=== PATIENT | female | born 1945 | race Caucasian/White ===

== ENCOUNTER → 2023-07-30 09:44 | Outpatient (REF) | payer MEDICARE, SELFPAY | LOC: HWRAD 09:44 | PROVIDERS: ATTENDING PHYSICIAN Urology; FAMILY PHYSICIAN Family Medicine | DX: N32.81 Overactive bladder (principal) | CPT/HCPCS: 76830; 76856; 76857 ==

== ENCOUNTER → 2023-08-22 07:35 | Outpatient (REF) | payer MEDICARE, SELFPAY ==
[2023-08-22 08:46] LABS: % Basophils 2.3 % (0-2); % Eosinophils 2.1 % (0-6); % Immature Granulocytes 0.1 % (0-0.5); % Lymphocytes 36.5 % (20.5-51.1); % Monocytes 7.5 % (1.7-9.3); % Neutrophils 51.5 % (42.2-75.2); Absolute Basophils 0.2 10^3/uL (0-0.2); Absolute Eosinophils 0.2 10^3/uL (0-0.7); Absolute Lymphocytes 2.6 10^3/uL (1.2-3.4); Absolute Monocytes 0.5 10^3/uL (0.1-0.6); Absolute Neutrophils 3.6 10^3/uL (1.4-6.5); Hematocrit 41.1 % (37.0-47.0); Hemoglobin 13.3 g/dL (12.0-16.0); Mean Corp Hgb Conc. 32.4 g/dL (33.0-37.0); Mean Corpuscular Volume 92.6 fL (81.0-99.0); Mean Platelet Volume 10.8 fL (7.4-10.4); Nucleated Red Blood Cells % 0 %; Platelet Count 378 10^3/uL (130-400); Red Blood Cell Count 4.44 10^6/uL (4.20-5.40); Red Cell Dist. Width 13.7 % (11.5-14.5); White Blood Cell Count 7.1 10^3/uL (4.8-10.8)
[2023-08-22 09:44] LABS: Blood Urea Nitrogen 17 mg/dl (7-17); Calcium 9.3 mg/dl (8.4-10.2); Carbon Dioxide 25 mmol/L (22-30); Chloride 106 mmol/L (98-107); Glucose 109 mg/dl (70-99); Potassium 4.7 mmol/L (3.5-5.1); Sodium 138 mmol/L (135-145); eGFR > 60.00
== END ==
LOC: SDSPAT 07:35
PROVIDERS: ATTENDING PHYSICIAN Obstetrics & Gynecology; FAMILY PHYSICIAN Family Medicine; OTHER PHYSICIAN Internal Medicine Hematology & Oncology; OTHER PHYSICIAN Surgery
DX: Z01.818 Encounter for other preprocedural examination (principal)
CPT/HCPCS: 36415; 80048; 85025; 86850; 86900; 86901; 93005

== ENCOUNTER 2023-08-26 06:33 | Day surgery (SDC) | payer MEDICARE, SELFPAY ==
[2023-08-22 07:54] VITALS: BMI 20.8
[2023-08-26] VITALS (11 sets, daily range): BP systolic 116–138; BP diastolic 66–85; BMI 20.8
[2023-08-26] MEDS: NORMOSOL-R 1000 IV (09:15)
[2023-08-26] MEDS: TYLENOL 1000 MG PO (10:11)
[2023-08-26] MEDS: TORADOL 15 MG IV (14:07)
--- NOTE | 2023-08-26 14:37 | W.IMMPOSTOP ---
Surgical Immed Post Op Note
-
Primary Surgeon: Jennifer Joseph DO
Assisting Surgeon: same
Pre-op Diagnosis: Thickened endometrium on ultrasound.
Post-op Diagnosis: same, endometrial polyp
Procedure Performed: Hyserscopy D&C; dx laparoscopy with evaluation of bowel and eval to rule out uterine perforation
Anesthesia Type: general LMA-replaced with ET Dr. Ness
Intraoperative consult: Dr. Casanova
Specimen / Cultures: 1. endocervical curettings 2, endometrial curettings and polyp
Estimated Blood Loss: 5ml
Complications: none
Operative Findings: uterus retroverted, sounded to 7cm. Initial evaluation with limited distension of
cavity. Yellowish appearing tissue noted raising concern for possible perforation. Laparoscopy revealed no evidence of
perforation. Normal appearing uterus, tubes and ovaries. Hysteroscopy performed again. Retroverted cavity. Polyp with slight
yellowish-white hue noted. Resected with myosure Reach. Cavity appeared smooth. Bilateral tubal ostia seen. Polyp located EDUARDO
with some fluffy tissue here. Long cervical canal.
Counts correct times 2.
Stable to recovery.
--- NOTE | 2023-08-26 14:58 | OR.RPT ---
Operative Report
Operative Report
Intra-operative consult
Preoperative diagnosis: Concern for bowel injury
Procedure: Diagnostic laparoscopy
Date of Surgery: 08/26/23
Postoperative diagnosis: Negative for bowel injury
Indications: This 77F was undergoing hysteroscopy with Dr. Joseph. During the procedure there was concern for possible bowel injury and General Surgery was consulted. The patient was under general anesthesia at the time of the consult.
Description of procedure: The abdomen was prepped and draped in the usual sterile fashion. A skin incision was made above the umbilicus at the site of her existing midline scar. The incision was carried down to the fascia with blunt dissection.
The fascia was grasped with kochers and elevated. It was divided with metzenbaum scissors and the abdomen entered. A 12mm Monson trocar was placed and secured with 0 vicryl stay sutured on either side. The abdomen was insufflated with carbon dioxide
to a pressure of 12 mmHg. The patient tolerated insufflation well.
The table was placed in head down position and 2 additional trocars were placed, each 5mm, under direct vision in the right lower quadrant. The small bowel in the pelvis was run proximal and distal. The uterus was closely inspected. No injuries to
the bowel were identified. No penetrating injury through the wall of the uterus was identified. No succus was identified.
At this point the diagnostic laparoscopy was concluded. The remainder of the procedure including closure was performed by Dr. Joseph.
== END 2023-08-26 16:05 | disposition home or self-care (01) ==
LOC: SDS 06:33
PROVIDERS: ATTENDING PHYSICIAN Obstetrics & Gynecology
DX: N84.0 Polyp of corpus uteri (principal); R93.89 Abnormal findings on diagnostic imaging of other specified body structures; N85.4 Malposition of uterus
CPT/HCPCS: 49320; 58558; 88305; 86900; 86901

== ENCOUNTER 2023-09-11 14:53 | Outpatient (RCR) | payer MEDICARE, SELFPAY | END 2023-09-11 23:59 | disposition home or self-care (01) | LOC: RPT 14:53 | PROVIDERS: ATTENDING PHYSICIAN Family Medicine | DX: I89.0 Lymphedema, not elsewhere classified (principal); Z73.6 Limitation of activities due to disability | CPT/HCPCS: 97140; 97162; 97535 ==

== ENCOUNTER → 2023-09-23 11:50 | Outpatient (REF) | payer MEDICARE, SELFPAY | LOC: CLAB 11:50 | PROVIDERS: ATTENDING PHYSICIAN Urology | DX: N32.89 Other specified disorders of bladder (principal) | CPT/HCPCS: 88112 ==

== ENCOUNTER 2023-10-02 06:31 | Day surgery (SDC) | payer MEDICARE, SELFPAY ==
[2023-10-02] VITALS (12 sets, daily range): BP systolic 118–157; BP diastolic 73–85; BMI 21.1
[2023-10-02] MEDS: CYSVIEW KIT 100 MG INTRAVES (08:14)
[2023-10-02] MEDS: NORMOSOL-R 1000 IV (08:28)
[2023-10-02] MEDS: SYRINGE NON-PUMP 50 ML IRRIG ×2 (09:59→10:00)
[2023-10-02] MEDS: SYRINGE NON-PUMP 50 MG IRRIG ×2 (09:59→10:00)
[2023-10-02] MEDS: Pyridium 200 MG PO (10:44)
== END 2023-10-02 12:15 | disposition home or self-care (01) ==
LOC: SDS 06:31
PROVIDERS: ATTENDING PHYSICIAN Specialist
DX: D30.3 Benign neoplasm of bladder (principal)
CPT/HCPCS: 52234; 51720; C9738; 88305; 88307; A9589

== ENCOUNTER 2023-10-08 16:35 | Outpatient (RCR) | payer MEDICARE, SELFPAY | END 2023-10-08 23:59 | disposition home or self-care (01) | LOC: RPT 16:35 | PROVIDERS: ATTENDING PHYSICIAN Family Medicine | DX: I89.0 Lymphedema, not elsewhere classified (principal); Z73.6 Limitation of activities due to disability | CPT/HCPCS: 97140; 97164; 97535 ==

== ENCOUNTER 2023-11-13 12:54 | Outpatient (RCR) | payer MEDICARE, SELFPAY | END 2023-11-13 23:59 | disposition home or self-care (01) | LOC: RPT 12:54 | PROVIDERS: ATTENDING PHYSICIAN Family Medicine | DX: I89.0 Lymphedema, not elsewhere classified (principal); Z73.6 Limitation of activities due to disability; R26.2 Difficulty in walking, not elsewhere classified | CPT/HCPCS: 97535 ==

== ENCOUNTER 2024-08-05 06:19 | Day surgery (SDC) | payer MEDICARE, SELFPAY | END 2024-08-05 11:31 | disposition home or self-care (01) | LOC: GI 06:19 | PROVIDERS: ATTENDING PHYSICIAN Specialist | DX: R13.10 Dysphagia, unspecified (principal); K31.89 Other diseases of stomach and duodenum; K29.50 Unspecified chronic gastritis without bleeding | CPT/HCPCS: 43239; 88305; 88342 ==